=== PATIENT | female | born 1995 | race Caucasian/White ===

== ENCOUNTER 2018-12-30 15:33 | Outpatient (CLI) | payer OTHER ==
--- NOTE | 2018-12-30 16:24 | RAD ---
SCOLIOSIS SERIES: HISTORY: Low back pain for a year. Scoliosis. COMPARISON: None. FINDINGS: Anterior views of the thoracic and lumbosacral spine were performed. There is minimal scoliotic curvature of the spine with a maximum Collier angle of 8. No degenerative changes or vertebral anomalies are seen. IMPRESSION: Mild scoliosis. POS: [facility]
== END 2018-12-30 15:34 | disposition home or self-care (01) ==
LOC: BICRAD 15:33
PROVIDERS: ATTEND Physician Assistant
DX: M54.9 Dorsalgia, unspecified (principal); M41.9 Scoliosis, unspecified
CPT/HCPCS: 72081